=== PATIENT | male | born 1970 | race Caucasian/White ===

== ENCOUNTER 2019-09-30 12:36 | Inpatient (IN) | payer OTHER ==
[2019-09-30] MEDS ORDERED: MAG HYDROX/AL HYDROX/SIMETH 30 ML UNIT-DOSE CUP PO ONE (12:38)
[2019-09-30] MEDS ORDERED: LIDOCAINE VISCOUS 2% ORAL/TOP 20 ML UNIT-DOSE CUP MM ONE (12:38)
[2019-09-30] MEDS ORDERED: ACETAMINOPHEN 1000 MG/100 ML VIAL (NON FORMULARY) IVPB ONE (12:38)
[2019-09-30] MEDS ORDERED: SODIUM CHLORIDE 1,000 ML IV STA (12:38)
[2019-09-30] MEDS ORDERED: FAMOTIDINE 20 MG/50 ML IVPB 20 MG/50 ML MG IVPB ONE ×2 (12:38→12:51)
[2019-09-30 12:40] VITALS: BMI 27.5
--- NOTE | 2019-09-30 12:46 | PDOC ---
Attending Attestation - Resident Resident Name: Priscilla Phelps - HPI HPI: 10/01/19 16:58 Pt presents to the ED complaining of epigastric pain and nausea without vomiting that has been present for three months but became acutely worse. Denies fevers, change in bowel habits or prior abdominal surgeries. 10/01/19 17:00 - Physicial Exam PE: 10/01/19 17:08 Agree with resident exam. Patient is well appearing and in no acute distress. No jaundice. Abdomen is soft, non tender, non distended without guarding or rebound. - Medical Decision Making 10/01/19 17:14 Pt presents to the ED complaining of epigastric pain. Initial differential included gastritis, PUD, pancreatitis and biliary disease. LFTs were elevated and suggestive of obstruction, so patient had US which showed gallbladder sludge without evidence of cholecystitis or obstruction. PAtient admitted fo [facility] and continued work up. Discharge - Discharge Information Problems reviewed: Yes Clinical Impression/Diagnosis: Epigastric abdominal pain, Choledocholithiasis Condition: Good Disposition: HOME - Admission Yes - Follow up/Referral - Patient Discharge Instructions - Post Discharge Activity
[2019-09-30] MEDS ORDERED: ACETAMINOPHEN INJECTION 100 ML IVPB ONE (12:50)
[2019-09-30] MEDS ORDERED: LIDOCAINE VISCOUS 2% ORAL/TOP 20 ML UNIT-DOSE CUP ONE (12:51)
[2019-09-30] MEDS ORDERED: MAG HYDROX/AL HYDROX/SIMETH 30 ML UNIT-DOSE CUP ONE (12:51)
--- NOTE | 2019-09-30 12:54 | PDOC ---
History of Present Illness - General History Source: Patient Exam Limitations: No Limitations - History of Present Illness Initial Comments: Pt is a 49 yo M, with PMH of ADHD, who is presenting from home with intermittent upper abdominal pain x2-3 months. Pt states the pain is epigastric, worse after eating and night-time, and radiates up to his sternum/mid-chest. Pain is associated with nausea, but no vomiting. No blood in stools, no changes to BMs. He did note that his urine looks "darker" today. Pt has not tried any antacid or analgesia at home, and states he came today because this episode has lasted longer than others. Pt denies any fevers/chills, headache, vision changes, syncope, chest pain, palpitations, SOB, vomiting, abdominal pain, dys uria/hematuria/frequency, diarrhea/constipation, or leg swelling. Allergies: NKDA Social: Pt denies any cigarette, alcohol, or drug use. Pt denies any recent travel or sick contacts. Surgical: testicular mass removal (benign, remote) Family: no relevant history. 09/30/19 12:49 <Priscilla Phelps - Last Filed: 09/30/19 15:42> <Yady Salas - Last Filed: 09/30/19 16:46> - General Chief Complaint: Pain, Acute Stated Complaint: ABD PAIN/BURNING Time Seen by Provider: 09/30/19 12:37 Past History - Travel History Traveled outside of the country in the last 30 days: No Close contact w/someone who was outside of country & ill: No - Medical History COPD: No - Psycho-Social/Smoking History Smoking History: Never smoked - Substance Abuse Hx (Audit-C & DAST Scrn) How often the patient has a drink containing alcohol: Monthly or less Number of drinks the patient has on a typical day: 1 or 2 How often the patient has six or more drinks on one occasion: Never Score: In Men: 4 or > Positive; In Women: 3 or > Positive: 1 Screen Result (Pos requires Nsg. Audit-10AR): Negative In the last yr the pt used illegal drug/Rx for NonMed reason: No Score: Yes response is considered Positive: 0 Screen Result (Positive result requires Nsg. DAST-10): Negative <Priscilla Phelps - Last Filed: 09/30/19 15:42> <Yady Salas - Last Filed: 09/30/19 16:46> - Medical History Allergies/Adverse Reactions: Allergies Allergy/AdvReac Type Severity Reaction Status Date / Time No Known Allergies Allergy Verified 09/30/19 12:37 Home Medications: Ambulatory Orders Dextroamphetamine/Amphetamine [Adderall Xr 20 mg Capsule] 0 mg PO DAILY 09/30/19 Escitalopram Oxalate [Lexapro -] 10 mg PO DAILY 09/30/19 Abd/GI Specific PMHX - Complaint Specific PMHX Colitis: No Diverticulitis: No Gall Bladder Disease: No GERD: No Hepatitis: No Irritable Bowel Synd (IBS): No Pancreatitis: No GI Ulcer Disease: No <Priscilla Phelps - Last Filed: 09/30/19 15:42> Review of Systems - Review of Systems Able to Perform ROS?: Yes Is the patient limited Occitan proficient: No Constitutional: Yes: Weight Stable. No: Chills, Diaphoresis, Fever, Loss of Appetite, Malaise, Weakness HEENTM: No: Recent change in vision, Nose Congestion, Throat Pain, Throat Swelling Respiratory: No: Cough, Orthopnea, Shortness of Breath Cardiac (ROS): No: Chest Pain, Edema, Irregular Heart Rate, Lightheadedness, Palpitations, Syncope, Chest Tightness ABD/GI: Yes: See HPI, Nausea, Indigestion. No: Abdominal Distended, Blood Streaked Bowels, Constipated, Diarrhea, Difficulty Swallowing, Poor Appetite, Poor Fluid Intake, Rectal Bleeding, Vomiting, Abdominal cramping, Tarry Stools : No: Burning, Dysuria, Frequency, Flank Pain, Hematuria, Pain, Urgency Musculoskeletal: No: Back Pain, Muscle Pain Integumentary: No: Rash Neurological: No: Headache, Numbness, Weakness, Unsteady Gait, Dizziness Psychiatric: No: Sleep Pattern Change, Change in Appetite Endocrine: No: Increased Urine, Change in Weight Hematologic/Lymphatic: No: Anemia, Blood Clots, Easy Bleeding, Easy Bruising All Other Systems: Reviewed and Negative <Priscilla Phelps - Last Filed: 09/30/19 15:42> *Physical Exam - Vital Signs Last Vital Signs Temp Pulse Resp BP Pulse Ox 98.9 F 63 17 153/89 97 09/30/19 12:36 09/30/19 12:36 09/30/19 12:36 09/30/19 12:36 09/30/19 12:36 - Physical Exam Vitals stable, pt afebrile. Pt in NAD, ambulatory into ED without assistance. Normal body habitus. Pt alert and oriented x3. hand rigger generally intact, muscular strength and sensation intact. No midline spinal tenderness, step-offs, or crepitus. Head normocephalic, atraumatic. Eyes PERRLA, EOMI. Oropharynx without erythema or exudates, no LAD b/l. No nasal congestion. Hearing intact. Clear heart sounds, S1/S2, no JVD, b/l pedal edema, or heart murmur. Clear lung sounds, no respiratory distress, wheezes, crackles, or accessory muscle use. No abdominal or CVA tenderness to palpation, no rebound, no guarding. Abdomen soft, non-distended, and with normoactive bowel sounds. Skin without jaundice or rash. 09/30/19 12:53 <Priscilla Phelps - Last Filed: 09/30/19 15:42> - Vital Signs Last Vital Signs Temp Pulse Resp BP Pulse Ox 98.9 F 63 17 153/89 97 09/30/19 12:36 09/30/19 12:36 09/30/19 12:36 09/30/19 12:36 09/30/19 12:36 <Yady Salas - Last Filed: 09/30/19 16:46> ED Treatment Course - LABORATORY CBC & Chemistry Diagram: 09/30/19 12:52 09/30/19 12:52 <Priscilla Phelps - Last Filed: 09/30/19 15:42> - LABORATORY CBC & Chemistry Diagram: 09/30/19 12:52 09/30/19 12:52 - ADDITIONAL ORDERS Additional order review: Laboratory Results 09/30/19 09/30/19 09/30/19 14:28 12:52 12:52 Sodium 138 Potassium 3.9 Chloride 99 Carbon Dioxide 27 Anion Gap 12 BUN 15.0 Creatinine 1.1 Est GFR (CKD-EPI)AfAm 90.24 Est GFR (CKD-EPI)NonAf 77.86 Random Glucose 133 H Calcium 9.4 Total Bilirubin 3.5 H AST 600 H ALT 660 H Alkaline Phosphatase 152 H Troponin I < 0.03 Cancelled Total Protein 8.0 Albumin 4.5 Lipase 126 Urine Color Yellow Urine Appearance Clear Urine pH 7.5 Urine Protein Negative Urine Glucose (UA) Negative Urine Ketones Negative Urine Blood Trace-intact Urine Nitrite Negative Urine Bilirubin 1+ H Urine Urobilinogen 4.0 e.u/dl Ur Leukocyte Esterase Negative Urine RBC 2-5 Urine WBC 0-2 Ur Transition Epith Cell Rare Urine Bacteria Rare 09/30/19 12:52 RBC 5.47 MCV 85.3 MCHC 34.0 RDW 12.9 MPV 8.3 Neutrophils % 84.7 H Lymphocytes % 8.1 Monocytes % 4.4 Eosinophils % 0.1 Basophils % 2.7 H - Medications Given in the ED: ED Medications Discontinued Medications Generic Name Dose Route Start Last Admin Trade Name Jamieq PRN Reason Stop Dose Admin Acetaminophen 1,000 mg 09/30/19 12:38 09/30/19 13:17 Ofirmev Injection - IVPB 09/30/19 12:39 1,000 mg ONCE ONE Administration Al Hydroxide/Mg Hydroxide 30 ml 09/30/19 12:38 09/30/19 13:06 Mylanta Oral Suspension - PO 09/30/19 12:39 30 ml ONCE ONE Administration Sodium Chloride 1,000 mls @ 1,000 mls/hr 09/30/19 12:38 09/30/19 13:06 Normal Saline - IV 09/30/19 13:37 1,000 mls/hr ASDIR STA Administration Famotidine/Sodium Chloride 20 mg in 50 mls @ 100 mls/hr 09/30/19 12:38 09/30/19 13:06 Pepcid 20 Mg Premixed Ivpb - IVPB 09/30/19 13:07 100 mls/hr ONCE ONE Administration Piperacillin Sod/Tazobactam 50 mls @ 100 mls/hr 09/30/19 15:25 09/30/19 16:15 Sod 3.375 gm/ Dextrose IVPB 09/30/19 15:54 100 mls/hr ONCE ONE Administration Protocol Lidocaine HCl 20 ml 09/30/19 12:38 09/30/19 13:06 Xylocaine 2% Viscous Oral - MM 09/30/19 12:39 20 ml ONCE ONE Administration <Yady Salas - Last Filed: 09/30/19 16:46> Medical Decision Making - Medical Decision Making Pt was seen at bedside, also will be seen by attending Dr. Salas. Pt presenting with intermittent abdominal pain with radiation to mid-sternum and worse with lying flat/night-time. No cardiac risk factors. VSS, abdomen soft and non-tender, afebrile and has been tolerating PO intake at home. Likely gastritis, will evaluate for ACS, elevated LFTs/bilirubin concerning for hepatitis/cholecystitis, pancreatitis. -CBC, CMP, lipase -UA -Will consider imaging if labs abnormal or pt not improving or tolerating PO intake in ED Provided 1 L IV NS, ofirmev, viscous lido/Maalox, pepcid for improvement of likely indigestion, pain. Will continue to reassess pt and monitor for symptomatic improvement. 09/30/19 12:54 ECG: Sinus bradycardia (HR 53, ND 168, QRS 90, QTc 409). No TWIs or significant ST segment changes. No prior ECG for comparison. 09/30/19 13:15 LFTs and tbili elevated Urine with bilirubin Pt afebrile, no WBCs US showed GB sludge without CBD dilation, no visualized stones or GB wall thickening Consulted GI (Dr. Jameson) who recommended prophylactic abx and requested surgery consult. Provided dose of zosyn Pt to be admitted to m/s for further evaluation and MRCP vs ERCP Pt stable, pain controlled. 09/30/19 15:42 <Priscilla Phelps - Last Filed: 09/30/19 15:42> Discharge - Discharge Information Problems reviewed: Yes - Admission Yes <Priscilla Phelps - Last Filed: 09/30/19 15:42> - Discharge Information Problems reviewed: Yes - Admission Yes <Yady Salas - Last Filed: 09/30/19 16:46> - Discharge Information Clinical Impression/Diagnosis: Epigastric abdominal pain Condition: Stable - Follow up/Referral Referrals: Anamika Macias [Primary Care Provider] - - Patient Discharge Instructions - Post Discharge Activity
[2019-09-30 13:08] LABS: BASO % 2.7 % (0-2.0); EOS % 0.1 % (0-4.5); HEMATOCRIT 46.7 % (35.4-49); HEMOGLOBIN 15.9 GM/dl (11.7-16.9); LYMPH % 8.1 % (8-40); MEAN CELL VOLUME 85.3 fl (80-96); MEAN PLT VOLUME 8.3 fl (7.5-11.1); MONO % 4.4 % (3.8-10.2); NEUT % 84.7 % (42.8-82.8); PLATELET COUNT 317 K/MM3 (134-434); RBC 5.47 M/mm3 (4.00-5.60); RDW 12.9 % (11.9-15.9); WHITE BLOOD COUNT 9.4 K/mm3 (4.0-10.8)
[2019-09-30 13:25] LABS: ALBUMIN 4.5 g/dl (3.4-5.0); BILIRUBIN,TOTAL 3.5 mg/dl (0.2-1); CALCIUM 9.4 mg/dl (8.5-10); CREATININE 1.1 mg/dl (0.55-1.3); POTASSIUM 3.9 mmol/L (3.5-5.1)
[2019-09-30 15:06] LABS: EPITHELIAL CELLS RARE /hpf
[2019-09-30] MEDS ORDERED: PIPERACILLIN/TAZOB 3.375 GM 3.375 GM in DEXTROSE 5%-WATER - 50 ML IVPB ONE (15:25)
[2019-09-30] MEDS ORDERED: PIPERACILLIN/TAZOB 3.375 GM 3.375 GM/50 ML BAG IVPB ONE (15:51)
[2019-09-30] MEDS ORDERED: ONDANSETRON 4 MG/2 ML VIAL IVPUSH PRN (16:43)
[2019-09-30] MEDS ORDERED: SODIUM CHLORIDE 0.45% 1,000 ML IV SCH (16:45)
--- NOTE | 2019-09-30 16:48 | PN ---
Progress Note (short form) - Note Progress Note: Patient seen and chart/labs reviewed with consult dictated. Patient is a 49 yo male with several month history of mild epigastric pain at night and more recent mild reflux symptoms at night. Has several days of increased discomfort especially over past 24 hours, along with darkening of the urine. No fever or chills but had mid-abdominal pain today - presented to ED.Labs with elevated AST/ALT, bili and alk phos. No fever or leukocytosis. Normal lipase level. Sono c/w GB sludge and dilatation but no dilatation of CBD (pancreas not well seen) Suspect CBD obstruction ?stone/sludge Does not have dilated CBD and alk phos only mildly elevated. Diff dx includes early CBD or partial obstruction (?sludge in CBD); no clear-cut cholecystitis although GB dilated (?cystic duct obstruction) Less likely malignancy or acute hepatitis Rec: MRCP Surgery consult hepatitis panel +/- antibiotics PPI daily consider HIDA scan pending MRCP decision re:ERCP pending above repeat LFTsin am; PT/INR ordered
--- NOTE | 2019-09-30 17:14 | HP ---
CHIEF COMPLAINT: Epigastric Pain PCP: Anamika Macias HISTORY OF PRESENT ILLNESS: 49 YOM with Mhx of ADHD, presented to ED complaining from abdominal pain of 2 months duration that worsened last day. Pain is mostly associated with food and releaved by not eating. Pt reported that his pain sudden became worse yesterday and was 9/10, sharp located in epigastric area, no radiation, no associated with nausea or vomiting, no fever, chills or change in his bowel habits. pt describes himself as health and stated that he hasn't visited a doctor for a while ER course was notable for: (1) elevated LFT (2) bilirubin in urine. (3) US was done and showed mildly distended gallbladder, with sludge. Recent Travel: no PAST MEDICAL HISTORY: ADHD PAST SURGICAL HISTORY: esticular mass removal (benign, remote) Social History: Smoking: denies Alcohol: denies Drugs: denies works as Ep[employer] Allergies No Known Allergies Allergy (Verified 09/30/19 12:37) HOME MEDICATIONS: Home Medications Medication Instructions Recorded Dextroamphetamine/Amphetamine 0 mg PO DAILY 09/30/19 [Adderall Xr 20 mg Capsule] Escitalopram Oxalate [Lexapro -] 10 mg PO DAILY 09/30/19 REVIEW OF SYSTEMS CONSTITUTIONAL: Absent: fever, chills, diaphoresis, generalized weakness, malaise, loss of appetite, weight change HEENT: Absent: rhinorrhea, nasal congestion, throat pain, throat swelling, difficulty swallowing, mouth swelling, ear pain, eye pain, visual changes CARDIOVASCULAR: Absent: chest pain, syncope, palpitations, irregular heart rate, lightheadedness, peripheral edema RESPIRATORY: Absent: cough, shortness of breath, dyspnea with exertion, orthopnea, wheezing, stridor, hemoptysis GASTROINTESTINAL:abdominal pain, Absent: abdominal distension, nausea, vomiting, diarrhea, constipation, melena, hematochezia GENITOURINARY: Absent: dysuria, frequency, urgency, hesitancy, hematuria, flank pain, genital pain MUSCULOSKELETAL: Absent: myalgia, arthralgia, joint swelling, back pain, neck pain SKIN: Absent: rash, itching, pallor HEMATOLOGIC/IMMUNOLOGIC: Absent: easy bleeding, easy bruising, lymphadenopathy, frequent infections ENDOCRINE: Absent: unexplained weight gain, unexplained weight loss, heat intolerance, cold intolerance NEUROLOGIC: Absent: headache, focal weakness or paresthesias, dizziness, unsteady gait, seizure, mental status changes, bladder or bowel incontinence PSYCHIATRIC: Absent: anxiety, depression, suicidal or homicidal ideation, hallucinations. PHYSICAL EXAMINATION Vital Signs - 24 hr 09/30/19 09/30/19 12:36 16:40 Temperature 98.9 F 98.8 F Pulse Rate 63 62 Respiratory 17 17 Rate Blood Pressure 153/89 131/79 O2 Sat by Pulse 97 Oximetry (%) GENERAL: Awake, alert, and fully oriented, in no acute distress. HEAD: Normal with no signs of trauma. EYES: Pupils equal, round and reactive to light, extraocular movements intact, sclera anicteric, conjunctiva clear. No lid lag. EARS, NOSE, THROAT: Ears normal, nares patent, oropharynx clear without exudates. Moist mucous membranes. NECK: Normal range of motion, supple without lymphadenopathy, JVD, or masses. LUNGS: Breath sounds equal, clear to auscultation bilaterally. No wheezes, and no crackles. No accessory muscle use. HEART: Regular rate and rhythm, normal S1 and S2 without murmur, rub or gallop. ABDOMEN: Soft, epigastric tenderness, not distended, normoactive bowel sounds, no guarding, no rebound, no masses. No hepatomegaly or splenomegaly. MUSCULOSKELETAL: Normal range of motion at all joints. No bony deformities or tenderness. No CVA tenderness. UPPER EXTREMITIES: 2+ pulses, warm, well-perfused. No cyanosis. No clubbing. No peripheral edema. LOWER EXTREMITIES: 2+ pulses, warm, well-perfused. No calf tenderness. No peripheral edema. NEUROLOGICAL: Cranial nerves II-XII intact. Normal speech. Normal gait. PSYCHIATRIC: Cooperative. Good eye contact. Appropriate mood and affect. SKIN: Warm, dry, normal turgor, no rashes or lesions noted, normal capillary refill. Laboratory Results - last 24 hr 09/30/19 09/30/19 09/30/19 12:52 12:52 12:52 WBC 9.4 RBC 5.47 Hgb 15.9 Hct 46.7 MCV 85.3 MCH 29.0 MCHC 34.0 RDW 12.9 Plt Count 317 MPV 8.3 Absolute Neuts (auto) 7.9 Neutrophils % 84.7 H Lymphocytes % 8.1 Monocytes % 4.4 Eosinophils % 0.1 Basophils % 2.7 H Sodium 138 Potassium 3.9 Chloride 99 Carbon Dioxide 27 Anion Gap 12 BUN 15.0 Creatinine 1.1 Est GFR (CKD-EPI)AfAm 90.24 Est GFR (CKD-EPI)NonAf 77.86 Random Glucose 133 H Calcium 9.4 Total Bilirubin 3.5 H AST 600 H ALT 660 H Alkaline Phosphatase 152 H Troponin I Cancelled < 0.03 Total Protein 8.0 Albumin 4.5 Lipase 126 Urine Color Urine Appearance Urine pH Urine Protein Urine Glucose (UA) Urine Ketones Urine Blood Urine Nitrite Urine Bilirubin Urine Urobilinogen Ur Leukocyte Esterase Urine RBC Urine WBC Ur Transition Epith Cell Urine Bacteria 09/30/19 14:28 WBC RBC Hgb Hct MCV MCH MCHC RDW Plt Count MPV Absolute Neuts (auto) Neutrophils % Lymphocytes % Monocytes % Eosinophils % Basophils % Sodium Potassium Chloride Carbon Dioxide Anion Gap BUN Creatinine Est GFR (CKD-EPI)AfAm Est GFR (CKD-EPI)NonAf Random Glucose Calcium Total Bilirubin AST ALT Alkaline Phosphatase Troponin I Total Protein Albumin Lipase Urine Color Yellow Urine Appearance Clear Urine pH 7.5 Urine Protein Negative Urine Glucose (UA) Negative Urine Ketones Negative Urine Blood Trace-intact Urine Nitrite Negative Urine Bilirubin 1+ H Urine Urobilinogen 4.0 e.u/dl Ur Leukocyte Esterase Negative Urine RBC 2-5 Urine WBC 0-2 Ur Transition Epith Cell Rare Urine Bacteria Rare ASSESSMENT/PLAN: 49 YO gentleman with Mhx of ADHD, who presented complaining from epigastric pain and was found to have elevated LFT # Epigastric Pain in setting of Elevated LFT - possible causes: cholecystitis +/- calculus with atypical symptoms, acute hepatitis - no fever, leukocytosis, or conjunctival icterus - NPO, Pain management, IV abx, PPi - GI consult for possible MRCP - surgical consult - Elevated AST/ALT > ALK, could be hepatitis vs early biliary disease - trend LFTs, Hepatitis panel ADHD DVT prophylaxis, PPi Visit type - Emergency Visit Emergency Visit: Yes ED Registration Date: 09/30/19 Care time: The patient presented to the Emergency Department on the above date and was hospitalized for further evaluation of their emergent condition. - New Patient This patient is new to me today: Yes Date on this admission: 09/30/19 - Critical Care Critical Care patient: No
[2019-09-30 17:55] LABS: INR 1.16 (0.82-1.09)
--- NOTE | 2019-09-30 18:02 | CONS ---
DATE OF CONSULTATION: 09/30/2019 I was asked to evaluate this 49-year-old gentleman admitted with upper abdominal pain and abnormal liver chemistries. The patient is a 49-year-old gentleman with a history of ADHD and depression/anxiety for which he is on Lexapro and Adderall. He has otherwise been generally healthy and active. He states that over the past several months he has awoken at night with some upper abdominal discomfort and mild dyspepsia which resolved spontaneously after each episode. During the daytime he denied any abdominal pain or discomfort. Overall his appetite and weight have remained stable, although this past 1 to 2 days he has had somewhat of a diminished appetite, slight darkening of the urine and yesterday and today more upper abdominal pain including during the daytime hours. He presented to the emergency room for evaluation and was noted to have abnormal liver chemistries including AST and ALT levels of 600 and 660, alkaline phosphatase of 152, and a total bilirubin of 3.5 with a lipase of 126. His white count was 9.4, hemoglobin 15.9, hematocrit 46.7. The patient denied any fever or chills but did complain of slight malaise and slight decreased appetite. He has no prior history of hepatitis or jaundice, although he believes 30+ years ago in college he may have had mononucleosis with transient elevated liver tests. He is a nonsmoker, rare to nondrinker, and his current medications include Adderall and Lexapro, which he has been on at the current doses for at least several years. PHYSICAL EXAMINATION: General: On exam, he is a well-developed, slightly icteric/jaundiced gentleman with clear lungs. Cardiac: Regular rate and rhythm. Abdomen: Soft. Normoactive bowel sounds. Minimal nonspecific upper abdominal discomfort without any mass or guarding. Abdominal ultrasound was performed showing a mildly distended surgical gallbladder but no actual stones or evidence of intra- or extrahepatic biliary ductal dilatation. The pancreas is not well seen. IMPRESSION: A 49-year-old gentleman with abnormal liver chemistries and upper abdominal discomfort. Sonogram shows sludge and a dilated gallbladder suggestive of biliary obstruction, however the common bile duct and intrahepatic ducts are not described as dilated on sonogram. This may reflect either early obstruction, partial obstruction or possibly passage of a stone or sludge. Patient without fever or white count may have a low-grade cholangitis or possible cholecystitis. Further workup including MRCP and possible HIDA scan will be suggested along with a surgical consult. Serologies for acute hepatitis ordered along with an INR and ProTime. Would continue patient on clear liquids pending aforementioned workup. Decision regarding additional studies including ERCP based on above studies. Thank you, will follow. OLEGARIO CHESTER M.D. EMMANUEL/[id number]
[2019-09-30] MEDS: morphine CARPU-JECT 2 MG/1 ML DISP.SYRIN IVPUSH PRN (21:41)
[2019-09-30] MEDS ORDERED: KETOROLAC TROMETHAMINE 15 MG/ML VIAL IVPUSH PRN (22:21)
[2019-10-01] MEDS ORDERED: PIPERACILLIN/TAZOB 3.375 GM 3.375 GM in DEXTROSE 5%-WATER - 50 ML IVPB SCH (03:00)
[2019-10-01 07:41] LABS: HEMOGLOBIN 13.8 GM/dl (11.7-16.9); MCH 29.3 pg (25.7-33.7); MCHC 34.5 g/dl (32.0-35.9); MEAN CELL VOLUME 84.9 fl (80-96); MEAN PLT VOLUME 8.5 fl (7.5-11.1); PLATELET COUNT 236 K/MM3 (134-434); RBC 4.72 M/mm3 (4.00-5.60); RDW 12.2 % (11.9-15.9)
[2019-10-01 07:54] LABS: ALBUMIN 3.7 g/dl (3.4-5.0); CALCIUM 8.9 mg/dl (8.5-10); CREATININE 0.9 mg/dl (0.55-1.3); MAGNESIUM 2.2 mg/dL (1.8-2.4); POTASSIUM 4.4 mmol/L (3.5-5.1); TOT PROT 6.6 g/dl (6.4-8.2)
[2019-10-01] MEDS: morphine CARPU-JECT 2 MG/1 ML DISP.SYRIN IVPUSH PRN (08:28)
[2019-10-01] MEDS ORDERED: PANTOPRAZOLE SODIUM 40 MG VIAL IVPUSH SCH (10:00)
--- NOTE | 2019-10-01 11:19 | EKG ---
Test Reason : Blood Pressure : / mmHG Vent. Rate : 053 BPM Atrial Rate : 053 BPM P-R Int : 168 ms QRS Dur : 090 ms QT Int : 436 ms P-R-T Axes : 000 -25 094 degrees QTc Int : 409 ms SINUS BRADYCARDIA NONSPECIFIC ST AND T WAVE ABNORMALITY ABNORMAL ECG NO PREVIOUS ECGS AVAILABLE Confirmed by JAYDE ARROYO MD ([id number]) on 10/01/2019 11:19:25 AM Referred By: HELEN MARTINS Confirmed By:JAYDE ARROYO MD
--- NOTE | 2019-10-01 11:39 | CONSULT ---
- Consultation REQUESTING PROVIDER: CONSULT REQUEST: We have been asked to surgically evaluate this patient for abdominal pain PCP: Deana Rodriguez HISTORY OF PRESENT ILLNESS: Pt seen and examined on AM rounds. 49 yo M, with PMH of ADHD, who is presenting from home with intermittent upper abdominal pain x 2- 3 days. Pt states the pain is epigastric, worse after eating and night-time, and radiates up to his sternum/mid-chest. Pain is associated with nausea, but no vomiting. No blood in stools, no changes to BMs. He did note that his urine has been "darker" lately. Pt denies any fevers/chills, headache, vision changes, syncope, chest pain, palpitations, SOB, vomiting, abdominal pain, dysuria/hematuria/frequency, diarrhea/constipation, or leg swelling. Allergies: NKDA Social: Pt denies any cigarette, alcohol, or drug use. Pt denies any recent travel or sick contacts. Surgical: testicular mass removal (benign, remote) Family: no relevant history. - General Chief Complaint: Pain, Acute Stated Complaint: ABD PAIN/BURNING Past History - Travel History Traveled outside of the country in the last 30 days: No Close contact w/someone who was outside of country & ill: No - Medical History COPD: No - Psycho-Social/Smoking History Smoking History: Never smoked - Substance Abuse Hx (Audit-C & DAST Scrn) How often the patient has a drink containing alcohol: Monthly or less Number of drinks the patient has on a typical day: 1 or 2 How often the patient has six or more drinks on one occasion: Never Score: In Men: 4 or > Positive; In Women: 3 or > Positive: 1 Screen Result (Pos requires Nsg. Audit-10AR): Negative In the last yr the pt used illegal drug/Rx for NonMed reason: No Score: Yes response is considered Positive: 0 Screen Result (Positive result requires Nsg. DAST-10): Negative - Medical History Allergies/Adverse Reactions: Allergies Allergy/AdvReac Type Severity Reaction Status Date / Time No Known Allergies Allergy Verified 09/30/19 12:37 Home Medications: Ambulatory Orders Dextroamphetamine/Amphetamine [Adderall Xr 20 mg Capsule] 0 mg PO DAILY 09/30/19 Escitalopram Oxalate [Lexapro -] 10 mg PO DAILY 09/30/19 Abd/GI Specific PMHX - Complaint Specific PMHX Colitis: No Diverticulitis: No Gall Bladder Disease: No GERD: No Hepatitis: No Irritable Bowel Synd (IBS): No Pancreatitis: No GI Ulcer Disease: No Review of Systems Able to Perform ROS?: Yes Is the patient limited Syriac proficient: No Constitutional: Yes: Weight Stable. No: Chills, Diaphoresis, Fever, Loss of Appetite, Malaise, Weakness HEENTM: No: Recent change in vision, Nose Congestion, Throat Pain, Throat Swelling Respiratory: No: Cough, Orthopnea, Shortness of Breath Cardiac (ROS): No: Chest Pain, Edema, Irregular Heart Rate, Lightheadedness, Palpitations, Syncope, Chest Tightness ABD/GI: Yes: See HPI, Nausea, abdominal pain, Indigestion. No: Abdominal Distended, Blood Streaked Bowels, Constipated, Diarrhea, Difficulty Swallowing, Poor Appetite, Poor Fluid Intake, Rectal Bleeding, Vomiting, Abdominal cramping, Tarry Stools : No: Burning, Dysuria, Frequency, Flank Pain, Hematuria, Pain, Urgency Musculoskeletal: No: Back Pain, Muscle Pain Integumentary: No: Rash Neurological: No: Headache, Numbness, Weakness, Unsteady Gait, Dizziness Psychiatric: No: Sleep Pattern Change, Change in Appetite Endocrine: No: Increased Urine, Change in Weight Hematologic/Lymphatic: No: Anemia, Blood Clots, Easy Bleeding, Easy Bruising All Other Systems: Reviewed and Negative Physical Exam Vitals stable, pt afebrile. Pt in NAD, Normal body habitus. Pt alert and oriented x3. Head normocephalic, atraumatic. Eyes PERRLA, EOMI. Unlabored resp on RA, no respiratory distress, No auditory wheezes, or accessory muscle use. abdomen: focal RUQ pain with no CVA tenderness to palpation, no rebound, no guarding. Abdomen soft, non-distended, and with normoactive bowel sounds. Skin or rash. Vital Signs Temperature 98.6 F 10/01/19 05:00 Pulse Rate 58 L 10/01/19 05:00 Respiratory Rate 18 10/01/19 05:00 Blood Pressure 135/77 10/01/19 05:00 O2 Sat by Pulse Oximetry (%) 97 10/01/19 05:00 Lab Results WBC 7.0 K/mm3 (4.0-10.8) 10/01/19 07:16 RBC 4.72 M/mm3 (4.00-5.60) 10/01/19 07:16 Hgb 13.8 GM/dl (11.7-16.9) 10/01/19 07:16 Hct 40.0 % (35.4-49) 10/01/19 07:16 MCV 84.9 fl (80-96) 10/01/19 07:16 MCHC 34.5 g/dl (32.0-35.9) 10/01/19 07:16 RDW 12.2 % (11.9-15.9) 10/01/19 07:16 Plt Count 236 K/MM3 (134-434) D 10/01/19 07:16 INR 1.16 (0.82-1.09) 09/30/19 17:00 Sodium 138 mmol/L (136-145) 10/01/19 07:16 Potassium 4.4 mmol/L (3.5-5.1) 10/01/19 07:16 Chloride 104 mmol/L (98-107) 10/01/19 07:16 Carbon Dioxide 26 mmol/L (21-32) 10/01/19 07:16 Anion Gap 8 MMOL/L (8-16) 10/01/19 07:16 BUN 11.0 mg/dl (7-18) 10/01/19 07:16 Creatinine 0.9 mg/dl (0.55-1.3) 10/01/19 07:16 Random Glucose 110 mg/dl (74-106) H 10/01/19 07:16 Calcium 8.9 mg/dl (8.5-10) 10/01/19 07:16 Abdominal ultrasound 09/30/19: mildly distended and sludge filled gallbladder with no evidence of cholelithiasis or acute cholecystitis Problem List - Problems (1) Epigastric abdominal pain Assessment/Plan: Patient is a 49 yo male with several month history of mild epigastric pain at night and more recent mild reflux symptoms at night. Has several days of increased discomfort especially over past 24 hours, along with darkening of the urine. No fever or chills but had mid-abdominal pain today - presented to ED.Labs with elevated AST/ALT, bili and alk phos. No fever or leukocytosis. Normal lipase level. Sono c/w GB sludge and dilatation but no dilatation of CBD (pancreas not well seen). Patient with benign abdomen and stable vital signs. COVID pending. CBD obstruction ?stone/sludge vs biliary dyskinesia Does not have dilated CBD and alk phos only mildly elevated. Diff dx includes early CBD or partial obstruction (?sludge in CBD); no clear-cut cholecystitis although GB dilated (?cystic duct obstruction) -NPO -MRCP today -trend daily labs-hepatitis panel -abx per medicine -PPI daily - GI following -consider HIDA scan pending MRCP - surgery will follow Evaluation and plan discussed with Dr Moy Code(s): R10.13 - EPIGASTRIC PAIN
[2019-10-01] MEDS ORDERED: MORPHINE SULFATE 2 MG/ML VIAL IVPUSH PRN (13:42)
[2019-10-01 14:13] VITALS: BP 117/63; PULSE 65; TEMP 98.7
--- NOTE | 2019-10-01 14:39 | PN ---
Progress Note (short form) - Note Progress Note: Results of MRCP noted; no biliary ductal dilatation but +sludge in GB. Normal liver, pancreas. LFTs still elevated and still with some abdominal pain. ?cholangitis/cholecystitis May have sludge in CBD but unsure if this is cause of the LFT abnls/jaundice. No new meds Hepatitis serologies pending Will arrange for ERCP next week Continue on PO liquids Repeat labs in am
[2019-10-01] MEDS ORDERED: PIPERACILLIN/TAZOB 2.25 GM 2.25 GM in DEXTROSE 5%-WATER - 50 ML IVPB SCH (15:00)
--- NOTE | 2019-10-01 15:00 | PN ---
Physical Exam: SUBJECTIVE: Patient seen and examined OBJECTIVE: Vital Signs Period Temp Pulse Resp BP Sys/Alarcon Pulse Ox Last 24 Hr 98.6 F-99.5 F 56-65 17-18 117-136/61-80 97-100 GENERAL: The patient is awake, alert, and fully oriented, in no acute distress. HEAD: Normal with no signs of trauma. EYES: PERRL, extraocular movements intact, sclera anicteric, conjunctiva clear. No ptosis. ENT: Ears normal, nares patent, oropharynx clear without exudates, moist mucous membranes. NECK: Trachea midline, full range of motion, supple. LUNGS: Breath sounds equal, clear to auscultation bilaterally, no wheezes, no crackles, no accessory muscle use. HEART: Regular rate and rhythm, S1, S2 without murmur, rub or gallop. ABDOMEN: Soft, nontender, nondistended, normoactive bowel sounds, no guarding, no rebound, no hepatosplenomegaly, no masses. EXTREMITIES: 2+ pulses, warm, well-perfused, no edema. NEUROLOGICAL: Cranial nerves II through XII grossly intact. Normal speech, gait not observed. PSYCH: Normal mood, normal affect. SKIN: Warm, dry, normal turgor, no rashes or lesions noted Laboratory Results - last 24 hr 09/30/19 09/30/19 09/30/19 13:28 14:28 16:30 WBC RBC Hgb Hct MCV MCH MCHC RDW Plt Count MPV PT with INR INR Sodium Potassium Chloride Carbon Dioxide Anion Gap BUN Creatinine Est GFR (CKD-EPI)AfAm Est GFR (CKD-EPI)NonAf POC Glucometer Random Glucose Calcium Magnesium Total Bilirubin Direct Bilirubin AST ALT Alkaline Phosphatase Total Protein Albumin Urine RBC 2-5 Urine WBC 0-2 Ur Transition Epith Cell Rare Urine Bacteria Rare COVID-19 ([facility]) Not detected Hep A IgM Ab Confirm Negative Hep Bs Antigen Negative Hep B Core IgM Ab Negative Hepatitis C Ab (EIA) 0.1 09/30/19 09/30/19 10/01/19 17:00 17:00 06:22 WBC RBC Hgb Hct MCV MCH MCHC RDW Plt Count MPV PT with INR 13.0 INR 1.16 Sodium Potassium Chloride Carbon Dioxide Anion Gap BUN Creatinine Est GFR (CKD-EPI)AfAm Est GFR (CKD-EPI)NonAf POC Glucometer 107 Random Glucose Calcium Magnesium Total Bilirubin Direct Bilirubin 1.9 H AST ALT Alkaline Phosphatase Total Protein Albumin Urine RBC Urine WBC Ur Transition Epith Cell Urine Bacteria COVID-19 ([facility]) Hep A IgM Ab Confirm Hep Bs Antigen Hep B Core IgM Ab Hepatitis C Ab (EIA) 10/01/19 10/01/19 07:16 07:16 WBC 7.0 RBC 4.72 Hgb 13.8 Hct 40.0 MCV 84.9 MCH 29.3 MCHC 34.5 RDW 12.2 Plt Count 236 D MPV 8.5 PT with INR INR Sodium 138 Potassium 4.4 Chloride 104 Carbon Dioxide 26 Anion Gap 8 BUN 11.0 Creatinine 0.9 Est GFR (CKD-EPI)AfAm 115.02 Est GFR (CKD-EPI)NonAf 99.24 POC Glucometer Random Glucose 110 H Calcium 8.9 Magnesium 2.2 Total Bilirubin 6.0 H D Direct Bilirubin AST 328 H ALT 585 H Alkaline Phosphatase 162 H D Total Protein 6.6 Albumin 3.7 Urine RBC Urine WBC Ur Transition Epith Cell Urine Bacteria COVID-19 ([facility]) Hep A IgM Ab Confirm Hep Bs Antigen Hep B Core IgM Ab Hepatitis C Ab (EIA) Active Medications Generic Name Dose Route Start Last Admin Trade Name Freq PRN Reason Stop Dose Admin Sodium Chloride 1,000 mls @ 100 mls/hr 09/30/19 16:45 09/30/19 17:39 1/2 Normal Saline IV 100 mls/hr ASDIR HYACINTH Administration Piperacillin Sod/Tazobactam 50 mls @ 100 mls/hr 10/01/19 15:00 Sod 2.25 gm/ Dextrose IVPB Q8H-IV HYACINTH Protocol Piperacillin Sod/Tazobactam 50 mls @ 100 mls/hr 10/01/19 15:00 Sod 2.25 gm/ Dextrose IVPB 10/02/19 14:59 Q8H HYACINTH Protocol Ketorolac Tromethamine 15 mg 09/30/19 22:21 Toradol Injection - IVPUSH 10/05/19 22:20 Q8H PRN PAIN LEVEL 4-6 Morphine Sulfate 1 mg 10/01/19 13:42 Morphine Sulfate IVPUSH Q4H PRN PAIN LEVEL 7-10 Ondansetron HCl 4 mg 09/30/19 16:43 Zofran Injection IVPUSH Q6H PRN NAUSEA AND/OR VOMITING Pantoprazole Sodium 40 mg 10/01/19 10:00 Protonix Iv IVPUSH DAILY [facility] ASSESSMENT/PLAN:
--- NOTE | 2019-10-01 16:06 | DS ---
Physical Exam: SUBJECTIVE: Patient seen and examined OBJECTIVE: Vital Signs Period Temp Pulse Resp BP Sys/Alarcon Pulse Ox Last 24 Hr 98.6 F-99.5 F 56-65 17-18 117-136/61-80 97-100 PHYSICAL EXAM GENERAL: The patient is awake, alert, and fully oriented, in no acute distress. HEAD: Normal with no signs of trauma. EYES: PERRL, extraocular movements intact, sclera anicteric, conjunctiva clear. ENT: Ears normal, nares patent, oropharynx clear without exudates, moist mucous membranes. NECK: Trachea midline, full range of motion, supple. LUNGS: Breath sounds equal, clear to auscultation bilaterally, no wheezes, no crackles, no accessory muscle use. HEART: Regular rate and rhythm, S1, S2 without murmur, rub or gallop. ABDOMEN: Soft, nontender, nondistended, normoactive bowel sounds, no guarding, no rebound, no hepatosplenomegaly, no masses. EXTREMITIES: 2+ pulses, warm, well-perfused, no edema. NEUROLOGICAL: Cranial nerves II through XII grossly intact. Normal speech, gait not observed. PSYCH: Normal mood, normal affect. SKIN: Warm, dry, normal turgor, no rashes or lesions noted. LABS Laboratory Results - last 24 hr 09/30/19 09/30/19 09/30/19 13:28 16:30 17:00 WBC RBC Hgb Hct MCV MCH MCHC RDW Plt Count MPV PT with INR INR Sodium Potassium Chloride Carbon Dioxide Anion Gap BUN Creatinine Est GFR (CKD-EPI)AfAm Est GFR (CKD-EPI)NonAf POC Glucometer Random Glucose Calcium Magnesium Total Bilirubin Direct Bilirubin 1.9 H AST ALT Alkaline Phosphatase Total Protein Albumin COVID-19 ([facility]) Not detected Hep A IgM Ab Confirm Negative Hep Bs Antigen Negative Hep B Core IgM Ab Negative Hepatitis C Ab (EIA) 0.1 09/30/19 10/01/19 10/01/19 17:00 06:22 07:16 WBC 7.0 RBC 4.72 Hgb 13.8 Hct 40.0 MCV 84.9 MCH 29.3 MCHC 34.5 RDW 12.2 Plt Count 236 D MPV 8.5 PT with INR 13.0 INR 1.16 Sodium Potassium Chloride Carbon Dioxide Anion Gap BUN Creatinine Est GFR (CKD-EPI)AfAm Est GFR (CKD-EPI)NonAf POC Glucometer 107 Random Glucose Calcium Magnesium Total Bilirubin Direct Bilirubin AST ALT Alkaline Phosphatase Total Protein Albumin COVID-19 ([facility]) Hep A IgM Ab Confirm Hep Bs Antigen Hep B Core IgM Ab Hepatitis C Ab (EIA) 10/01/19 07:16 WBC RBC Hgb Hct MCV MCH MCHC RDW Plt Count MPV PT with INR INR Sodium 138 Potassium 4.4 Chloride 104 Carbon Dioxide 26 Anion Gap 8 BUN 11.0 Creatinine 0.9 Est GFR (CKD-EPI)AfAm 115.02 Est GFR (CKD-EPI)NonAf 99.24 POC Glucometer Random Glucose 110 H Calcium 8.9 Magnesium 2.2 Total Bilirubin 6.0 H D Direct Bilirubin AST 328 H ALT 585 H Alkaline Phosphatase 162 H D Total Protein 6.6 Albumin 3.7 COVID-19 ([facility]) Hep A IgM Ab Confirm Hep Bs Antigen Hep B Core IgM Ab Hepatitis C Ab (EIA) Date of Admission:09/30/19 Date of Discharge: 10/01/19 Pre hospital course 49 year-old male with a PMH significant for ADHD, presented from home with intermittent upper abdominal pain x 2-3 days. Pt stated the pain is epigastric, worse after eating and night-time, and radiated up to his sternum/mid-chest. Pain was associated with nausea, but no vomiting. No blood in stools, no changes to BMs. He did note that his urine has been "darker" lately. Pt denied fevers/chills, headache, vision changes, syncope, chest pain, palpitations, SOB, vomiting, abdominal pain, dysuria/hematuria/frequency, diarrhea/constipation, or leg swelling. Hospital course MRCP demonstrated gallbladder sludge with no definite evidence of cholecystitis; normal caliber CBD, no intrahepatic biliary ductal dilitation, nonspecific periportal edema. Seen and evaluated by GI Dr. Jameson who recommended patient follow up as outpatient with Dr. Delmer Hussein at [facility]. Minutes to complete discharge: 35 Discharge Summary Problems reviewed: Yes Reason For Visit: COMMON BILE DUCT CALCULUS Current Active Problems Choledocholithiasis (Acute) Epigastric abdominal pain (Acute) Condition: Stable - Instructions Diet, Activity, Other Instructions: It is recommended you follow up with Dr. Delmer Hussein at [facility] [phone]. A prescription has been sent to your pharmacy for ciprofloxacin, an antibiotic. Take this medication as directed. If your pain worsens, if you develop a fever, or if your symptoms worsen, go to the nearest emergency department. Referrals: Robi Jameson MD [Staff Physician] - Anamika Macias [Primary Care Provider] - Disposition: HOME - Home Medications Comprehensive Discharge Medication List: Ambulatory Orders Dextroamphetamine/Amphetamine [Adderall Xr 20 mg Capsule] 0 mg PO DAILY 09/30/19 Escitalopram Oxalate [Lexapro -] 10 mg PO DAILY 09/30/19 This patient is new to me today: Yes Date on this admission: 10/19/19 Emergency Visit: Yes ED Registration Date: 09/30/19 Care time: The patient presented to the Emergency Department on the above date and was hospitalized for further evaluation of their emergent condition. Critical Care patient: No - Discharge Referral Referred to [facility] No
[2019-10-01 16:21] LABS: BASO % 0.8 % (0-2.0); EOS % 1.5 % (0-4.5); HEMATOCRIT 40.8 % (35.4-49); HEMOGLOBIN 13.9 GM/dl (11.7-16.9); LYMPH % 15.2 % (8-40); MCH 29.1 pg (25.7-33.7); MCHC 34.1 g/dl (32.0-35.9); MEAN CELL VOLUME 85.3 fl (80-96); MEAN PLT VOLUME 8.6 fl (7.5-11.1); MONO % 6.9 % (3.8-10.2); NEUT % 75.6 % (42.8-82.8); PLATELET COUNT 229 K/MM3 (134-434); RBC 4.78 M/mm3 (4.00-5.60); RDW 12.6 % (11.9-15.9); WHITE BLOOD COUNT 6.9 K/mm3 (4.0-10.8)
[2019-10-01 16:28] LABS: ALBUMIN 3.7 g/dl (3.4-5.0); BILIRUBIN,DIRECT 3.5 mg/dL (0.0-0.2); BILIRUBIN,TOTAL 5.5 mg/dl (0.2-1); CALCIUM 8.8 mg/dl (8.5-10); CREATININE 0.8 mg/dl (0.55-1.3); POTASSIUM 3.9 mmol/L (3.5-5.1); TOT PROT 6.5 g/dl (6.4-8.2)
[2019-10-01] MEDS ORDERED: DEXTROSE 5%-WATER - 50 ML IVPB ONE (16:34)
[2019-10-01] MEDS ORDERED: PIPERACILLIN/TAZOBACTAM 2.25 GM VIAL IVPB ONE (16:34)
== END 2019-10-01 18:44 | disposition home or self-care (01) ==
LOC: FER 12:36 → FM/S 16:53
PROVIDERS: ADMIT Internal Medicine; ATTEND Nurse Practitioner Acute Care
DX: K80.50 Calculus of bile duct without cholangitis or cholecystitis without obstruction (principal); F90.9 Attention-deficit hyperactivity disorder, unspecified type; R79.89 Other specified abnormal findings of blood chemistry; K30 Functional dyspepsia; K82.9 Disease of gallbladder, unspecified; R11.2 Nausea with vomiting, unspecified
CPT/HCPCS: 36415; 74181-TC; 76705-TC; 80048; 80053; 80074; 80076; 81003; 81015; 82248; 82962; 83690; 83735; 84484; 85025; 85027; 85610; 93005; 99285-25; J0131; U0003